=== PATIENT | male | born 2000 | race Hispanic/Latino ===

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

== ENCOUNTER 2021-01-26 12:32 | Emergency (ER) | payer BC, SELFPAY ==
[2021-01-26 13:12] LABS: Absolute Lymphocytes (CBC) 1.5 K/uL (0.7-4.9); Basophils % 0.4 % (0-1.3); Lymphocytes % 14.7 % (15.3-44.8); MPV 9.2 fL (7.6-11.3); RBC Red Blood Cell Count 5.48 M/uL (4.33-5.43)
[2021-01-26] MEDS ORDERED: METHYLPREDNISOLONE 125 MG INJ ONE (13:17)
[2021-01-26] MEDS ORDERED: DIPHENHYDRAMINE 50 MG/ML VIAL ONE (13:17)
[2021-01-26 13:26] LABS: BUN Blood Urea Nitrogen 10 mg/dL (7-18); Bicarbonate 25 mmol/L (21-32); Glucose Level 101 mg/dL (74-106); Magnesium 2.6 mg/dL (1.8-2.4); Potassium 3.7 mmol/L (3.5-5.1); Sodium Level 140 mmol/L (136-145)
--- NOTE | 2021-01-26 13:37 | RAD REPORT ---
EXAM DESCRIPTION: CT - Head C Spine Mpr Wo Con - 01/26/2021 1:23 pm CLINICAL HISTORY: Numbness COMPARISON: 2018 TECHNIQUE: Computed axial tomography of the head and cervical spine was obtained. Sagittal and coronal reconstruction was performed. All CT scans are performed using dose optimization technique as appropriate and may include automated exposure control or mA/KV adjustment according to patient size. FINDINGS: An intracranial bleed is not seen. The ventricles are normal in caliber. An extra-axial fl uid collection is not noted.Fluid within the visualized sinuses and mastoids is not seen A cervical fracture is not visualized. No dislocation is noted. Large disc bulge/herniation not seen. No high-grade stenosis noted IMPRESSION: No acute intracranial abnormality is seen. A cervical fracture is not visualized. If the patient continues to have symptoms to suggest intracranial /spinal cord/spinal canal pathology then MRI would be recommended
--- NOTE | 2021-01-26 13:50 | ER ---
Nurse's Notes [facility] Name: Gilberto Dalal Age: 20 yrs Sex: Male : 2000 Arrival Date: 01/26/2021 Time: 12:34 Bed 19 [facility] MD: Diagnosis: Paresthesia of skin Presentation: 01/26 12:55 Chief complaint: Patient states: INTERMITTENT FACE NUMBNESS. Coronavirus screen: At bp this time, the client does not indicate any symptoms associated with coronavirus-19. Ebola Screen: No symptoms or risks identified at this time. Initial Sepsis Screen: Does the patient meet any 2 criteria? No. Patient's initial sepsis screen is negative. Does the patient have a suspected source of infection? No. Patient's initial sepsis screen is negative. Risk Assessment: Do you want to hurt yourself or someone else? Patient reports no desire to harm self or others. Onset of symptoms is unknown. 12:55 Method Of Arrival: Ambulatory bp 12:55 Acuity: NEY 4 bp Triage Assessment: 12:55 General: Appears in no apparent distress. comfortable, Behavior is cooperative, bp appropriate for age, anxious, restless. Pain: Denies pain. EENT: No deficits noted. Neuro: Level of Consciousness is alert, obeys commands, Brand Leader are equal bilaterally. Cardiovascular: No deficits noted. Respiratory: No deficits noted. GI: No signs and/or symptoms were reported involving the gastrointestinal system. : No signs and/or symptoms were reported regarding the genitourinary system. Derm: No deficits noted. Musculoskeletal: No deficits noted. Historical: - Allergies: 13:29 No Known Allergies; bp - Home Meds: 13:29 None [Active]; bp - PMHx: 13:29 None; bp - Immunization history:: Adult Immunizations unknown. - Social history:: Smoking status: unknown. - Family history:: not pertinent. - Hospitalizations: : No recent hospitalization is reported. Screenin:55 Abuse screen: Denies threats or abuse. Denies injuries from another. Nutritional bp screening: No deficits noted. Tuberculosis screening: No symptoms or risk factors identified. Fall Risk None identified. Assessment: 12:55 General: SEE TRIAGE NOTE. bp 14:25 Reassessment: PT D/C HOME AMBULATORY WITH FAMILY, DX WITH PARASTHESIA OF SKIN. bp Vital Signs: 12:55 BP 148 / 75; Pulse 105; Resp 16; Temp 98.7; Pulse Ox 98% on R/A; kj1 14:25 BP 127 / 69; Pulse 92; Resp 19; Pulse Ox 100% ; bp ED Course: 12:34 Patient arrived in ED. mr 12:38 Memo Valenzuela MD is Attending Physician. rn 12:54 Ricky Sommers, YOSELYN is Primary Nurse. bp 12:55 Initial lab(s) drawn, by tx, sent to lab. Inserted saline lock: 20 gauge in left kj1 antecubital area, using aseptic technique. Blood collected. 12:55 Arm band placed on. bp 12:55 Patient has correct armband on for positive identification. Bed in low position. Call bp light in reach. Side rails up X2. 13:08 CBC with Diff Sent. [facility] 13:08 Basic Metabolic Panel Sent. [facility] 13:08 Magnesium Sent. [facility] 13:23 CT Head C Spine In Process Unspecified. EDMS 13:28 Triage completed. bp 14:25 No provider procedures requiring assistance completed. intact, bleeding controlled, No bp redness/swelling at site. Pressure dressing applied. Administered Medications: 13:15 Drug: Benadryl (diphenhydrAMINE) 25 mg Route: IVP; Site: left antecubital; bp 13:44 Drug: SOLU-Medrol (methylPrednisoLONE) 125 mg Route: IVP; Site: left antecubital; bp Outcome: 13:50 Discharge ordered by MD. rn 14:25 Discharged to home ambulatory, with family. bp 14:25 Condition: stable 14:25 Discharge instructions given to patient, family, Instructed on discharge instructions, follow up and referral plans. Demonstrated understanding of instructions, follow-up care, medications, Prescriptions given X 1. 14:28 Patient left the ED. bp Signatures: Dispatcher [employer] EDKS Keith Radha de dios Memo Valenzuela MD MD rn Martinez, Maria [facility] Ricky Sommers, YOSELYN RN Kesha Alejandro [facility] Corrections: (The following items were deleted from the chart) 13:29 13:27 Chief complaint: Patient states: INTERMITTENT FACE NUMBNESS bp bp 13:29 13:27 Coronavirus screen: At this time, the client does not indicate any symptoms bp associated with coronavirus-19. bp 13:29 13:27 Ebola Screen: No symptoms or risks identified at this time. bp bp 13:29 13:27 Initial Sepsis Screen: Does the patient meet any 2 criteria? No. Patient's bp initial sepsis screen is negative. Does the patient have a suspected source of infection? No. Patient's initial sepsis screen is negative. bp 13:29 13:27 Risk Assessment: Do you want to hurt yourself or someone else? Patient reports no bp desire to harm self or others. bp 13: 13:27 Onset of symptoms is unknown. bp bp 13: 13:27 Method Of Arrival: Ambulatory bp bp 13: 13:27 Acuity: NEY 4 bp bp
--- NOTE | 2021-01-26 13:50 | EDPHYS ---
Physician Documentation [facility] Name: Gilberto Dalal Age: 20 yrs Sex: Male : 2000 Arrival Date: 01/26/2021 Time: 12:34 Bed 19 Private MD: ED Physician Memo Valenzuela HPI: 01/26 13:07 This 20 yrs old Male presents to ER via Unassigned with complaints of Numbness rn Of Face. 13:07 The patient's problem is reported as paresthesias, in right lower extremity, in left rn upper extremity, in left lower extremity, in left side of face. Onset: The symptoms/episode began/occurred just prior to arrival. Duration: This was a single incident. Context:. The symptoms are alleviated by nothing. The symptoms are aggravated by nothing. Associated signs and symptoms: Pertinent positives: tingling, Pertinent negatives: abdominal pain, chest pain, confusion, seizure, shortness of breath, vomiting. Severity of symptoms: At their worst the symptoms were moderate in the emergency department the symptoms have improved. The patient has not experienced similar symptoms in the past. The patient has not recently seen a physician. Patient reports was drinking coffee, felt like his face was becoming swollen and felt tingling of the left upper extremity. States this is never happened before. Denies neck pain. Does report a mild headache. States he looked in the mirror and his brows appeared swollen. States upon arrival symptoms have resolved and feels back to normal without any intervention. Denies shortness of breath or rash.. Historical: - Allergies: 13:29 No Known Allergies; bp - Home Meds: 13:29 None [Active]; bp - PMHx: 13:29 None; bp - Immunization history:: Adult Immunizations unknown. - Social history:: Smoking status: unknown. - Family history:: not pertinent. - Hospitalizations: : No recent hospitalization is reported. ROS: 13:07 Constitutional: Negative for fever, chills, and weight loss, Eyes: Negative for injury, rn pain, redness, and discharge, Neck: Negative for injury, pain, and swelling, Cardiovascular: Negative for chest pain, palpitations, and edema, Respiratory: Negative for shortness of breath, cough, wheezing, and pleuritic chest pain, Abdomen/GI: Negative for abdominal pain, nausea, vomiting, diarrhea, and constipation, Back: Negative for injury and pain, : Negative for injury, bleeding, discharge, and swelling, MS/Extremity: Negative for injury and deformity, Skin: Negative for injury, rash, and discoloration, Neuro: Negative for headache, and seizure. Exam: 13:07 Constitutional: This is a well developed, well nourished patient who is awake, alert, rn and in no acute distress. Head/Face: Normocephalic, atraumatic. Eyes: Pupils equal round and reactive to light, extra-ocular motions intact. Mild erythema around both eyes with mild swelling. ENT: No stridor, no tongue swelling Neck: Trachea midline, no thyromegaly or masses palpated, and no cervical lymphadenopathy. Supple, full range of motion without nuchal rigidity, or vertebral point tenderness. No Meningismus. Cardiovascular: Tachycardic, regular. No pulse deficits. Respiratory: No increased work of breathing, no retractions or nasal flaring. Skin: Warm, dry with normal turgor. Normal color with no rashes, no lesions, and no evidence of cellulitis. MS/ Extremity: Pulses equal, no cyanosis. Neurovascular intact. Full, normal range of motion. Equal circumference. Neuro: Awake and alert, GCS 15, oriented to person, place, time, and situation. Cranial nerves II-XII grossly intact. Motor strength 5/5 in all extremities. Sensory grossly intact. Cerebellar exam normal. Vital Signs: 12:55 BP 148 / 75; Pulse 105; Resp 16; Temp 98.7; Pulse Ox 98% on R/A; kj1 14:25 BP 127 / 69; Pulse 92; Resp 19; Pulse Ox 100% ; bp MDM: 12:38 Patient medically screened. rn 13:48 Differential diagnosis: metabolic disorder, local irritant, allergic reaction, rn radiculopathy. Data reviewed: vital signs, nurses notes, lab test result(s), radiologic studies, CT scan, and as a result, I will discharge patient. Counseling: I had a detailed discussion with the patient and/or guardian regarding: the historical points, exam findings, and any diagnostic results supporting the discharge/admit diagnosis, lab results, radiology results, the need for outpatient follow up, to return to the emergency department if symptoms worsen or persist or if there are any questions or concerns that arise at home. Response to treatment: the patient's symptoms have markedly improved after treatment, and as a result, I will discharge patient. Special discussion: I discussed with the patient/guardian in detail that at this point there is no indication for admission to the hospital. It is understood, however, that if the symptoms persist or worsen the patient needs to return immediately for re-evaluation. 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 The left arm paresthesias have improved and back to baseline without intervention and upon arrival. CT head and C-spine without acute findings. Blood work without acute findings. No abnormal electrolyte finding. Will DC home with return precautions.. 01/26 12:52 Order name: CBC with Diff; Complete Time: 13:37 rn 01/26 12:52 Order name: Basic Metabolic Panel; Complete Time: 13:37 rn 01/26 12:52 Order name: CT Head C Spine; Complete Time: 13:39 rn 01/26 12:52 Order name: Magnesium; Complete Time: 13:37 rn 01/26 12:52 Order name: IV Start; Complete Time: 13:08 rn Administered Medications: 13:15 Drug: Benadryl (diphenhydrAMINE) 25 mg Route: IVP; Site: left antecubital; bp 13:44 Drug: SOLU-Medrol (methylPrednisoLONE) 125 mg Route: IVP; Site: left antecubital; bp Disposition Summary: 01/26/21 13:50 Discharge Ordered Location: Home rn Problem: new rn Symptoms: have improved rn Condition: Stable rn Diagnosis - Paresthesia of skin rn Followup: rn - With: Private Physician - When: As needed - Reason: Recheck today's complaints, Re-evaluation by your physician Discharge Instructions: - Discharge Summary Sheet rn - Paresthesia rn Forms: - Medication Reconciliation Form rn - Thank You Letter rn - Antibiotic international sales manager - Prescription Opioid Use rn Prescriptions: - Medrol (Bo) 4 mg Oral Tablets, Dose Pack - take 1 tablet by ORAL route as directed - follow package instructions; 1 rn packet; Refills: 0, Product Selection Permitted Signatures: Dispatcher [employer] EDMemo Powell MD MD rn Peltier, Brian, RN RN bp
[2021-01-26 14:35] VITALS: TEMP 98.7
[2021-01-26 14:36] VITALS: BP 127/69; O2SAT 100
== END 2021-01-26 14:28 | disposition home or self-care (01) ==
LOC: ER 12:32
DX: R20.2 Paresthesia of skin (principal)
CPT/HCPCS: 36415; 70450; 72125; 80048; 83735; 85025; 96374; 96375; 99284; J1200; J2930

== ENCOUNTER 2021-08-29 06:21 | Day surgery (SDC) | payer BC, SELFPAY ==
[2021-08-27 08:58] LABS: SARS-CoV-2 Antigen Rapid Res Negative (Negative)
[2021-08-27 09:08] LABS: Absolute Lymphocytes (CBC) 1.6 K/uL (0.7-4.9); Hematocrit 44.4 % (39.6-49.0); Lymphocytes % 21.4 % (15.3-44.8); MCV 89.7 fL (80-100); MPV 9.2 fL (7.6-11.3); RBC Red Blood Cell Count 4.95 M/uL (4.33-5.43)
[2021-08-29] MEDS ORDERED: CEFOXITIN SODIUM 1 GM/VIAL ONE (06:43)
[2021-08-29] MEDS ORDERED: Ringers Lactate 1,000 ML IV ONE (06:43)
[2021-08-29] MEDS ORDERED: CELECOXIB 100 MG CAPSULE ONE (07:00)
[2021-08-29] MEDS ORDERED: ACETAMINOPHEN 500 MG TAB ONE (07:00)
[2021-08-29] MEDS ORDERED: ROCURONIUM 50 MG/5 ML VIAL IV ONE (07:17)
[2021-08-29] MEDS ORDERED: propofoL 200 MG/20 ML VIAL IV ONE ×2 (07:17→08:05)
[2021-08-29] MEDS ORDERED: MIDAZOLAM HCL 2 MG/2 ML INJ ONE (07:17)
[2021-08-29] MEDS ORDERED: FENTANYL CITR 100 MCG/2 ML ONE (07:17)
[2021-08-29] MEDS ORDERED: LIDOCAINE 2% MPF 5 ML VIAL ONE (07:18)
[2021-08-29] MEDS ORDERED: ONDANSETRON 4 MG/2 ML VIAL ONE (07:18)
[2021-08-29] MEDS ORDERED: HYDROCODONE/APAP 7.5/325 MG TAB PO PRN (08:11)
[2021-08-29] MEDS ORDERED: KETOROLAC 30 MG/ML INJ ONE (08:14)
[2021-08-29] MEDS ORDERED: dexAMETHasone 10 MG/ML VIAL ONE (08:14)
--- NOTE | 2021-08-29 08:14 | P.OP ---
Date of Service: 08/29/21 Preop diagnosis: Rectal pain Postop diagnosis: Posterior midline hemorrhoid Procedure performed: Exam under anesthesia, rigid proctoscopy, hemorrhoidectomy Surgeon: Jose Lius Martinez MD Pig Farm Manager: None Estimated blood loss: Minimal Specimen: Posterior midline hemorrhoid Findings: As above Anesthesia: General Complications: None Drains: None Fluids and blood products: Nonapplicable Disposition: Recovery room Operative note: Patient brought to the OR and placed in supine position. General anesthesia begun. Patient placed in the lithotomy position. Patient prepped and draped in usual sterile fashion. Exam under anesthesia and rigid proctoscopy performed and the findings are as follows: Posterior midline hemorrhoidno other evidence of disease noted. Harmonic scalpel used to excise the hemorrhoid. Bleeding controlled with cautery. Marcaine 0.5% infiltrated locally for postop pain control. Rectal pack consisting of Gelfoam, Surgicel and Vaseline gauze placed in the anal canal. Sterile dressing applied. Patient awakened taken to recovery room in good general condition. CC:
[2021-08-29] MEDS ORDERED: GLYCOPYRROLATE 0.2 MG/ML SYR ONE (08:15)
[2021-08-29] MEDS ORDERED: NEOSTIGMINE 1 MG/ML -10 ML VIAL ONE (08:22)
[2021-08-29] MEDS: HYDROMORPHONE HCL 1 MG/ML INJ ONE ×2 (08:51→08:57)
[2021-08-29 08:52] VITALS: O2SAT 98
[2021-08-29] MEDS ORDERED: HYDROCODONE/APAP 7.5/325 MG TAB ONE (09:55)
[2021-08-29 10:40] VITALS: BP 122/45; TEMP 97.1
== END 2021-08-29 09:54 | disposition home or self-care (01) ==
LOC: OR 06:21
PROVIDERS: ATTEND Surgery
PROC: 0DJD8ZZ Inspection of Lower Intestinal Tract, Via Natural or Artificial Opening Endoscopic (ICD-10-PCS; 2021-08-29)
PROC: 06BY4ZC Excision of Hemorrhoidal Plexus, Percutaneous Endoscopic Approach (ICD-10-PCS; principal; 2021-08-29 07:30)
DX: K64.8 Other hemorrhoids (principal); K62.5 Hemorrhage of anus and rectum; Z20.822 Contact with and (suspected) exposure to COVID-19
CPT/HCPCS: 46255; 45300; 85025; 36415; 88304; 87811; J2704 ×2; J2710; J2250; J3010; J1100; J1170; J7120; J0694; J2405

== ENCOUNTER 2024-11-24 10:25 | Emergency (ER) | payer BC ==
--- NOTE | 2024-11-24 11:02 | ER ---
Nurse's Notes [facility] Name: Gilberto Dalal Age: 24 yrs Sex: Male : 2000 Arrival Date: 11/24/2024 Time: 10:25 Bed DX4 Private MD: Diagnosis: Tinea pedis;Dermatitis, unspecified Presentation: 11/24 10:50 Chief complaint: Patient states: rash to both feet X 2 months, has been treating with OTC meds. Coronavirus screen: At this time, the client does not indicate any symptoms associated with coronavirus-19. Ebola Screen: No symptoms or risks identified at this time. Risk Assessment: Do you want to hurt yourself or someone else? Patient reports no desire to harm self or others. 10:50 Method Of Arrival: Ambulatory iw 10:50 Acuity: NEY 4 iw 11:19 Initial Sepsis Screen: Does the patient meet any 2 criteria? Yes Does the patient have cm10 a suspected source of infection? No. Patient's initial sepsis screen is negative. Onset of symptoms was October 2024. Historical: - Allergies: 10:52 No Known Allergies; iw - Home Meds: 10:52 None [Active]; iw - PMHx: 10:52 None; iw - PSHx: 10:52 Hemorrhoidectomy; iw - Immunization history:: Adult Immunizations not up to date. - Infectious Disease History:: Denies. - Social history:: Smoking status: Patient reports the use of cigarette tobacco products. Screenin:19 [facility] ED Fall Risk Assessment (Adult) History of falling in the last 3 months, cm10 including since admission No falls in past 3 months (0 pts) Confusion or Disorientation No (0 pts) Intoxicated or Sedated No (0 pts) Impaired Gait No (0 pts) Mobility Assist Device Used No (0 pt) Altered Elimination No (0 pt) Score/Fall Risk Level 0 - 2 = Low Risk Oriented to surroundings, Maintained a safe environment, Hourly rounding (assess needs \T\ fall precautionary measures) done. Abuse screen: Denies threats or abuse. Denies injuries from another. Nutritional screening: No deficits noted. Tuberculosis screening: No symptoms or risk factors identified. Assessment: 11:19 General: Appears in no apparent distress. comfortable, Behavior is calm, cooperative. cm10 Pain: Complains of pain in right foot and left foot. Neuro: No deficits noted. Level of Consciousness is awake, alert, obeys commands, Oriented to person, place, time, situation, Appropriate for age. Respiratory: No deficits noted. Airway is patent Respiratory effort is even, unlabored, Respiratory pattern is regular, symmetrical. Derm: Rash noted that is itchy, on right foot and left foot. Vital Signs: 10:50 BP 132 / 72; Pulse 83; Resp 16; Pulse Ox 98% on R/A; Weight 122.47 kg; Height 6 ft. 0 iw in. ; 10:50 Body Mass Index 36.62 (122.47 kg, 182.88 cm) iw ED Course: 10:31 Patient arrived in ED. cj3 10:32 Demario Freed FNP-C is [facility]. dr5 10:32 Kristopher Wood MD is Attending Physician. dr5 10:51 Triage completed. iw 10:52 Arm band placed on. iw 11:18 Patient has correct armband on for positive identification. Provided Education on: cm10 Follow-up instructions. 11:18 No provider procedures requiring assistance completed. Patient did not have IV access cm10 during this emergency room visit. Administered Medications: No medications were administered Medication: 11:19 VIS not applicable for this client. cm10 Outcome: 11:01 Discharge ordered by . dr5 11:18 Discharged to home ambulatory, cm10 11:18 Condition: good 11:18 Discharge instructions given to patient, Instructed on discharge instructions, follow up and referral plans. medication usage, Demonstrated understanding of instructions, follow-up care, medications, Prescriptions given X 2, 11:20 Patient left the ED. cm10 Signatures: Aby Bae, RN RN iw Temitope Lamb RN RN cm10 Demario Freed FNP-C FNP-5 Sivan Villarreal cj3 Corrections: (The following items were deleted from the chart) 10:52 10:50 BP 132 / 72; Pulse 83bpm; Resp 16bpm; Pulse Ox 98% RA; iw iw
--- NOTE | 2024-11-24 11:02 | EDPHYS ---
Physician Documentation [facility] Name: Gilberto Dalal Age: 24 yrs Sex: Male : 2000 Arrival Date: 11/24/2024 Time: 10:25 Bed DX4 Private MD: ED Physician Kristopher Wood HPI: 11/24 16:17 This 24 yrs old Male presents to ER via Ambulatory with complaints of Foot dr5 Problem- LT, Rash - ARMS. 16:17 The patient's rash thought to be caused by Eczema Dermatitis. The rash is located on dr5 the right foot and left foot. Onset: The symptoms/episode began/occurred 1 month(s) ago. Patient is a 24-year-old male with no past medical history coming in with athlete's foot to the top of left foot for the past month that has started on his right foot as well. Patient reports mild swelling to left foot. Patient also states that he has has generalized eczema on bilateral arms that is itchy. Patient reports he called his doctor spoke with pharmacist who recommended [id number] antifungal cream that he has not been consistent taking.. Historical: - Allergies: 10:52 No Known Allergies; iw - Home Meds: 10:52 None [Active]; iw - PMHx: 10:52 None; iw - PSHx: 10:52 Hemorrhoidectomy; iw - Immunization history:: Adult Immunizations not up to date. - Infectious Disease History:: Denies. - Social history:: Smoking status: Patient reports the use of cigarette tobacco products. ROS: 16:17 Constitutional: as per hpi dr5 Exam: 16:17 Constitutional: This is a well developed, well nourished patient who is awake, alert, dr5 and in no acute distress. Head/Face: Normocephalic, atraumatic. Eyes: Pupils equal round and reactive to light, extra-ocular motions intact. Lids and lashes normal. Conjunctiva and sclera are non-icteric and not injected. Cornea within normal limits. Periorbital areas with no swelling, redness, or edema. ENT: Nares patent. No nasal discharge, no septal abnormalities noted. Tympanic membranes are normal and external auditory canals are clear. Oropharynx with no redness, swelling, or masses, exudates, or evidence of obstruction, uvula midline. Mucous membranes moist. Chest/axilla: Normal chest wall appearance and motion. Nontender with no deformity. No lesions are appreciated. Cardiovascular: Regular rate and rhythm with a normal S1 and S2. Normal PMI, no JVD. No pulse deficits. Respiratory: Lungs have equal breath sounds bilaterally, clear to auscultation. No rales, rhonchi or wheezes noted. No increased work of breathing, no retractions or nasal flaring. Abdomen/GI: Soft, non-tender, non-distended Back: No spinal tenderness. No costovertebral tenderness. Full range of motion. 16:17 Neuro: Awake and alert, GCS 15, oriented to person, place, time, and situation. Cranial nerves II-XII grossly intact. Motor strength 5/5 in all extremities. Sensory grossly intact. Cerebellar exam normal. Normal gait. 16:17 Skin: Tinea Pedis, on the right foot and left foot, Vital Signs: 10:50 BP 132 / 72; Pulse 83; Resp 16; Pulse Ox 98% on R/A; Weight 122.47 kg; Height 6 ft. 0 iw in. ; 10:50 Body Mass Index 36.62 (122.47 kg, 182.88 cm) iw MDM: 10:32 Medical Screening Exam initiated dr5 16:17 Differential diagnosis: impetigo, varicella, allergic reaction, Tinea. Data reviewed: dr5 vital signs, nurses notes. I considered the following discharge prescriptions or medication management in the emergency department Antibiotics: At this time antibiotics are not recommended. Care significantly affected by the following Social Determinants of Health: Poor access to healthcare and/or lack of insurance, Poor access to transportation, Problems related to employment. Counseling: I had a detailed discussion with the patient and/or guardian regarding the historical points, exam findings, and any diagnostic results supporting the discharge/admit diagnosis, the presence of at least one elevated blood pressure reading (>120/80) during this emergency department visit, the need for outpatient follow up, for definitive care, a molded parts inspector, a family practitioner, to return to the emergency department if symptoms worsen or persist or if there are any questions or concerns that arise at home. Special discussion: I discussed with the patient/guardian in detail that at this point there is no indication for admission to the hospital. It is understood, however, that if the symptoms persist or worsen the patient needs to return immediately for re-evaluation. Based on the history and exam findings, there is no indication for further emergent testing or inpatient evaluation. I discussed with the patient/guardian the need to see the molded parts inspector for further evaluation of the symptoms. ED course: Recommend patient follow-up with molded parts inspector as well as primary care doctor. Informed patient that cream will take 4 to 6 weeks of continued use to remedy tinea pedis. Patient verbalized understanding. Recommended steroids for eczema as well as swelling. All questions answered. Strict ER precautions given.. Administered Medications: No medications were administered Disposition: 11/25 07:49 Co-signature as Attending Physician, Kristopher Wood MD I agree with the assessment and shruti plan of care. Disposition Summary: 11/24/24 11:01 Discharge Ordered Notes: Location: Home dr5 Condition: Stable dr5 Diagnosis - Tinea pedis dr5 - Dermatitis, unspecified dr5 Followup: dr5 - With: Private Physician - When: 1 - 2 days - Reason: Recheck today's complaints, Continuance of care, Re-evaluation by your physician Followup: dr5 - With: Emergency Department - When: As needed - Reason: Worsening of condition Discharge Instructions: - Discharge Summary Sheet dr5 - Athlete's Foot dr5 - Eczema dr5 Forms: - Work release form dr5 - Medication Reconciliation Form dr5 - Patient Portal Instructions dr5 - Leadership Thank You Letter dr5 Prescriptions: - ketoconazole 2 % Topical cream - apply 1 application TOPICAL route 2 times per day for 2 wks; 1 application; dr5 Refills: 0, Product Selection Permitted - Medrol (Bo) 4 mg Oral Tablets, Dose Pack - take 1 tablet ORAL route as directed - follow package instructions; 1 packet; dr5 Refills: 0, Product Selection Permitted Signatures: Kristopher Wood MD MD cha Williams, Irene, Demario Leon RN, CORK INSULATION INSTALLER-C CORK INSULATION INSTALLER-Cdr5
[2024-11-24 12:52] VITALS: BP 132/72; O2SAT 98
== END 2024-11-24 11:20 | disposition home or self-care (01) ==
LOC: ER 10:25
DX: B35.3 Tinea pedis (principal); L30.9 Dermatitis, unspecified
CPT/HCPCS: 99283